=== PATIENT | female | born 1985 | race Caucasian/White ===

== ENCOUNTER 2016-08-30 11:02 | Emergency (ER) | payer MEDICAID ==
[~2016-08-30] VITALS: Ht 167.6 cm; Wt 111.1 kg
[2016-08-30 11:16] VITALS: BP 133/80; PULSE 79; RESP 16; TEMP 97.5; O2SAT 99
[2016-08-30] MEDS ORDERED: KETOROLAC TROMETHAMINE 60 MG/2 ML VIAL IM ONE (12:45)
[2016-08-30 14:30] VITALS: BP 133/80; PULSE 79; RESP 16; TEMP 97.5; O2SAT 99
== END 2016-08-30 14:30 | disposition home or self-care (01) ==
LOC: SED 11:02
DX: M54.6 Pain in thoracic spine (principal); M62.830 Muscle spasm of back
CPT/HCPCS: 72072; 81025; 99284; J1885; 96372

== ENCOUNTER 2016-12-29 12:34 | Emergency (ER) | payer MEDICAID ==
[~2016-12-29] VITALS: Ht 167.6 cm; Wt 113.4 kg
[2016-12-29 12:42] VITALS: BP_SYST 130
[2016-12-29] MEDS ORDERED: DEXAMETHASONE SOD PHOSPHATE 10 MG/ML VIAL IM ONE (13:15)
[2016-12-29 13:30] VITALS: BP_SYST 125
== END 2016-12-29 13:30 | disposition home or self-care (01) ==
LOC: SED 12:36
DX: J02.0 Streptococcal pharyngitis (principal)
CPT/HCPCS: 81025; 96372; 99283; J1100

== ENCOUNTER 2017-02-01 08:01 | Emergency (ER) | payer MEDICAID ==
[~2017-02-01] VITALS: Ht 167.6 cm; Wt 113.4 kg
[2017-02-01 08:09] VITALS: BP_SYST 134
[2017-02-01] MEDS ORDERED: IBUPROFEN 800 MG TABLET PO ONE (09:15)
[2017-02-01 09:20] VITALS: BP_SYST 134
== END 2017-02-01 09:20 | disposition home or self-care (01) ==
LOC: SED 08:01
DX: R07.89 Other chest pain (principal)
CPT/HCPCS: 71010; 99283

== ENCOUNTER 2017-05-24 16:23 | Emergency (ER) | payer MEDICAID ==
[~2017-05-24] VITALS: Ht 167.6 cm; Wt 113.4 kg
[2017-05-24 16:42] VITALS: BP_SYST 146
[2017-05-24] MEDS ORDERED: ASPIRIN 81 MG TAB.CHEW PO ONE (16:45)
[2017-05-24] MEDS ORDERED: IBUPROFEN 800 MG TABLET PO ONE (17:00)
[2017-05-24 17:30] LABS: BASOPHILS % (AUTO) 0.3 % (0.0-2.0); EOSINOPHILS # (AUTO) 0.1 K/uL (0.0-0.4); EOSINOPHILS % (AUTO) 1.2 % (0.0-4.0); HEMATOCRIT 39.8 % (36-48); HEMOGLOBIN 13.2 g/dL (12.0-16.0); LYMPHOCYTES # (AUTO) 2.5 K/uL (1.0-5.5); LYMPHOCYTES % (AUTO) 24.6 % (20.5-51.5); MEAN CORPUSCULAR HEMOGLOBIN 27 pg (27-31); MEAN CORPUSCULAR HGB CONC 33 % (32-36); MEAN CORPUSCULAR VOLUME 81 fL (79.0-98.0); MONOCYTES # (AUTO) 0.6 K/uL (0.0-1.0); MONOCYTES % (AUTO) 5.7 % (1.7-9.3); NEUTROPHILS # (AUTO) 6.9 K/uL (1.8-7.7); NEUTROPHILS % (AUTO) 68.2 % (40.0-70.0); PLATELET COUNT (AUTO) 322 K/uL (130-430); RED CELL DISTRIBUTION WIDTH 13.7 % (9.0-15.0); WHITE BLOOD COUNT (AUTO) 10.1 K/uL (4.8-10.8)
[2017-05-24 17:38] LABS: PROTHROMBIN TIME 10.3 SECS (9.5-12.5)
[2017-05-24 18:03] LABS: CALCIUM 9.5 mg/dL (8.4-11.0); CREATININE 0.6 mg/dL (0.55-1.30); POTASSIUM 3.7 mmol/L (3.5-5.1)
[2017-05-24 18:07] LABS: ALBUMIN 3.8 g/dL (3.4-4.8); TOTAL BILIRUBIN 0.2 mg/dL (0.0-1.0)
[2017-05-24] MEDS ORDERED: KETOROLAC TROMETHAMINE 30 MG VIAL IVP ONE (19:00)
[2017-05-24 19:50] VITALS: BP_SYST 136
== END 2017-05-24 19:50 | disposition left against medical advice (07) ==
LOC: SED 16:23
DX: R07.89 Other chest pain (principal)
CPT/HCPCS: 36415; 71010; 80053; 80061; 81025; 83880; 84484; 85025; 85379; 85610; 85730; 93005; 96374; 99285; J1885

== ENCOUNTER 2017-12-06 15:59 | Emergency (ER) | payer MEDICAID ==
[~2017-12-06] VITALS: Ht 167.6 cm; Wt 104.3 kg
[2017-12-06 15:59] VITALS: BP_SYST 128
[2017-12-06] MEDS ORDERED: ASPIRIN 81 MG TAB.CHEW PO ONE (16:30)
[2017-12-06 16:54] LABS: BILIRUBIN,URINE NEGATIVE (NEGATIVE); CLARITY/URINE SL HAZY (CLEAR); COLOR,URINE YELLOW (YELLOW); GLUCOSE,URINE NEGATIVE (NEGATIVE); KETONES,URINE NEGATIVE (NEGATIVE); LEUKOCYTE ESTERASE ,URINE NEGATIVE (NEGATIVE); NITRITE, URINE NEGATIVE (NEGATIVE); PH,URINE 6.5 (5.0-8.0); PROTEIN URINE NEGATIVE (NEGATIVE); UROBILINOGEN,URINE 0.2 (0.2-1.0)
[2017-12-06 16:55] LABS: BASOPHILS # (AUTO) 0.3 K/uL (0.0-0.2); BASOPHILS % (AUTO) 2.3 % (0.0-2.0); EOSINOPHILS # (AUTO) 0.1 K/uL (0.0-0.4); EOSINOPHILS % (AUTO) 0.7 % (0.0-4.0); HEMATOCRIT 40.8 % (36-48); HEMOGLOBIN 13.8 g/dL (12.0-16.0); LYMPHOCYTES # (AUTO) 2.6 K/uL (1.0-5.5); LYMPHOCYTES % (AUTO) 21.2 % (20.5-51.5); MEAN CORPUSCULAR HEMOGLOBIN 28 pg (27-31); MEAN CORPUSCULAR HGB CONC 34 % (32-36); MEAN CORPUSCULAR VOLUME 84 fL (79.0-98.0); MONOCYTES # (AUTO) 0.7 K/uL (0.0-1.0); MONOCYTES % (AUTO) 5.4 % (1.7-9.3); NEUTROPHILS # (AUTO) 8.5 K/uL (1.8-7.7); NEUTROPHILS % (AUTO) 70.4 % (40.0-70.0); PLATELET COUNT (AUTO) 281 K/uL (130-430); RED BLOOD CELL COUNT(AUTO) 4.88 MIL/uL (4.2-6.2); RED CELL DISTRIBUTION WIDTH 12.8 % (9.0-15.0); WHITE BLOOD COUNT (AUTO) 12.2 K/uL (4.8-10.8)
[2017-12-06 17:07] LABS: BLOOD, URINE TRACE (NEGATIVE)
[2017-12-06 17:12] LABS: CALCIUM 9.1 mg/dL (8.4-11.0); CREATININE 0.51 mg/dL (0.55-1.30); POTASSIUM 3.9 mmol/L (3.5-5.1)
[2017-12-06 17:17] LABS: ALBUMIN 3.6 g/dL (3.4-4.8); TOTAL BILIRUBIN 0.3 mg/dL (0.0-1.0)
[2017-12-06 17:22] LABS: BACTERIA,URINE FEW /HPF (None Seen); MUCUS,URINE 1+ /LPF (None Seen); RBC,URINE 0-3 /HPF (0-3); WBC,URINE 0-3 /HPF (0-3)
[2017-12-06 17:23] LABS: BARBITURATE, URINE NEGATIVE (NEG <=200); BENZODIAZEPINE, URINE NEGATIVE (NEG <=150); CANNABINOID, URINE NEGATIVE (NEG <=50); COCAINE, URINE NEGATIVE (NEG <=150); METHAMPHETAMINES SCREEN,URINE NEGATIVE (NEG <=500); OPIATE, URINE NEGATIVE (NEG <=100); PHENCYCLIDINE SCREEN,URINE NEGATIVE (NEG <=25); UR TRICYCLIC ANTIDEPRESSANTS NEGATIVE (NEG <=300); URINE AMPHETAMINE NEGATIVE (NEG <=500); URINE METHADONE NEGATIVE (NEG <=200); URINE OXYCODONE SCREEN NEGATIVE (NEG <=100); URINE PROPOXYPHENE SCREEN NEGATIVE (NEG <=300)
[2017-12-06 17:42] VITALS: BP_SYST 135
== END 2017-12-06 17:42 | disposition home or self-care (01) ==
LOC: SED 15:59
DX: R07.89 Other chest pain (principal)
CPT/HCPCS: 36415; 71045; 80053; 80307; 81000-TC; 81025; 84484; 85025; 85379; 93005; 99285

== ENCOUNTER 2018-08-27 22:44 | Emergency (ER) | payer MEDICAID ==
[~2018-08-27] VITALS: Ht 167.6 cm; Wt 108.9 kg
[2018-08-27 22:55] VITALS: BP_SYST 123
[2018-08-28] MEDS ORDERED: ASPIRIN 81 MG TAB.CHEW PO ONE
[2018-08-28 00:33] LABS: BASOPHILS # (AUTO) 0.1 K/uL (0.0-0.2); BASOPHILS % (AUTO) 0.9 % (0.0-2.0); EOSINOPHILS # (AUTO) 0.1 K/uL (0.0-0.4); EOSINOPHILS % (AUTO) 1.6 % (0.0-4.0); HEMATOCRIT 37.7 % (36-48); HEMOGLOBIN 12.7 g/dL (12.0-16.0); LYMPHOCYTES # (AUTO) 2.4 K/uL (1.0-5.5); LYMPHOCYTES % (AUTO) 27.7 % (20.5-51.5); MEAN CORPUSCULAR HEMOGLOBIN 29 pg (27-31); MEAN CORPUSCULAR HGB CONC 34 % (32-36); MEAN CORPUSCULAR VOLUME 85 fL (79.0-98.0); MONOCYTES # (AUTO) 0.6 K/uL (0.0-1.0); MONOCYTES % (AUTO) 6.3 % (1.7-9.3); NEUTROPHILS # (AUTO) 5.6 K/uL (1.8-7.7); NEUTROPHILS % (AUTO) 63.5 % (40.0-70.0); PLATELET COUNT (AUTO) 255 K/uL (130-430); RED BLOOD CELL COUNT(AUTO) 4.45 MIL/uL (4.2-6.2); RED CELL DISTRIBUTION WIDTH 12.9 % (9.0-15.0); WHITE BLOOD COUNT (AUTO) 8.8 K/uL (4.8-10.8)
[2018-08-28 00:37] LABS: CALCIUM 8.5 mg/dL (8.4-11.0); CREATININE 0.59 mg/dL (0.55-1.30); POTASSIUM 3.5 mmol/L (3.5-5.1)
[2018-08-28 00:42] LABS: ALBUMIN 3.3 g/dL (3.4-4.8); TOTAL BILIRUBIN 0.2 mg/dL (0.0-1.0)
[2018-08-28 01:52] VITALS: BP_SYST 123
== END 2018-08-28 01:52 | disposition home or self-care (01) ==
LOC: SED 22:44
DX: R07.89 Other chest pain (principal); R42 Dizziness and giddiness; M25.521 Pain in right elbow
CPT/HCPCS: 36415; 71045; 80053; 81025; 83880; 84484; 85025; 93005; 99284

== ENCOUNTER 2023-05-05 10:53 | Emergency (ER) | payer MEDICAID | END 2023-05-05 11:10 | disposition left against medical advice (07) | LOC: SED 10:53 | DX: M79.622 Pain in left upper arm (principal); Z53.21 Procedure and treatment not carried out due to patient leaving prior to being seen by health care provider | CPT/HCPCS: 99281 ==